=== PATIENT | male | born 1995 | race African-American/Black ===

== ENCOUNTER 2018-08-27 06:59 | Emergency (ER) | payer OTHER ==
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
== END 2018-08-27 08:04 | disposition home or self-care (01) ==
LOC: VM.ED 06:59
DX: S00.81XA Abrasion of other part of head, initial encounter (principal); V89.2XXA Person injured in unspecified motor-vehicle accident, traffic, initial encounter
CPT/HCPCS: 70450; 72125; 72170; 99285-25